=== PATIENT | male | born 1990 | race Caucasian/White ===

== ENCOUNTER 2018-03-03 17:06 | Emergency (ER) | payer MEDICAID ==
[2018-03-03] MEDS: LIDOCAINE 1% (MDV) 10 ML INJ INJ (19:02)
== END 2018-03-03 19:11 | disposition home or self-care (01) ==
LOC: FTE 17:06
DX: S30.860A Insect bite (nonvenomous) of lower back and pelvis, initial encounter (principal); L02.31 Cutaneous abscess of buttock; F17.210 Nicotine dependence, cigarettes, uncomplicated; W57.XXXA Bitten or stung by nonvenomous insect and other nonvenomous arthropods, initial encounter; Y92.9 Unspecified place or not applicable
CPT/HCPCS: 10061; 99284-25

== ENCOUNTER 2018-03-05 22:30 | Emergency (ER) | payer MEDICAID ==
[2018-03-06] MEDS: HYDROCODONE/APAP (5/325) TAB PO (01:41)
[2018-03-06] MEDS: ONDANSETRON (ODT) 4 MG TAB ODT (01:41)
== END 2018-03-06 01:54 | disposition home or self-care (01) ==
LOC: FTE 22:30
DX: Z48.01 Encounter for change or removal of surgical wound dressing (principal); F17.210 Nicotine dependence, cigarettes, uncomplicated
CPT/HCPCS: 99283; Z7502